=== PATIENT | male | born 1970 | race Caucasian/White ===

== ENCOUNTER 2019-10-08 13:14 | Emergency (ER) | payer OTHER ==
[2019-10-08 13:27] VITALS: BMI 34.8
[2019-10-08] MEDS ORDERED: SODIUM CHLORIDE 1,000 ML IV STA (14:11)
--- NOTE | 2019-10-08 14:20 | PDOC ---
History of Present Illness - General Chief Complaint: Blood Sugar Problem Stated Complaint: SENT BY PCP Time Seen by Provider: 10/08/19 13:46 History Source: Patient Exam Limitations: No Limitations - History of Present Illness Initial Comments: Koko Bauman is a 48 yo M w a pmh of pre-diabetes and obesity who presents to the [facility] er from urgent care because he had an elevated glucose yesterday of over 400 associated with diffuse body pains. The patient states his Hb A1c from urgent care yesterday was measured at over 11 and he was told that he now has diabetes and has to come to the hospital to have his medications adjusted. The patient currently takes metformin for diabetes but no other meds. Here in the ER the patient endorses mild abdominal discomfort rated 4/10. Patient states his doc is in the [place] and would like doctors here to assume his care. He wants instructions on how to eat a healthy diet. Denies SOB, difficulty breathing, chest pain, back pain, dysuria, frequency, urgency, headache, blurry vision, nausea or vomiting PCP: In the [place] PSH: None reported Allergies: NKA, NKDA Social Hx: Denies smoking, drinking, or other substance usage. Past History - Past Medical History Home Medications: Ambulatory Orders Hydrochlorothiazide [Hctz -] 25 mg PO DAILY 10/08/19 Metformin HCl [Glucophage] 500 mg PO BID 10/08/19 COPD: No HTN: Yes Hypercholesterolemia: Yes - Psycho Social/Smoking Cessation Hx Smoking History: Never smoked Have you smoked in the past 12 months: No Information on smoking cessation initiated: No Hx Alcohol Use: No Drug/Substance Use Hx: No Review of Systems - Review of Systems Able to Perform ROS?: Yes Comments:: CONSTITUTIONAL: Absent: fever, no chills, no fatigue EYES: Absent: visual changes ENT: Absent: ear pain, no sore throat CARDIOVASCULAR: Absent: chest pain, no palpitations RESPIRATORY: Absent: cough, no SOB GI: Present: Abdominal pain Absent: no nausea, no vomiting, no constipation, no diarrhea GENITOURINARY: Present: Polyuria Absent: dysuria, no frequency, no hematuria MUSKULOSKELETAL: Absent: back pain, no arthralgia, no myalgia SKIN: Absent: rash NEURO: Absent: headache *Physical Exam - Vital Signs Last Vital Signs Temp Pulse Resp BP Pulse Ox 98.3 F 87 16 126/86 100 11/27/19 13:23 10/08/19 13:23 10/08/19 13:23 10/08/19 13:23 10/08/19 13:23 - Physical Exam Comments: GENERAL: Well-appearing, well-nourished. No apparent distress. HEENT: Normocephalic, atraumatic. PERRL, EOM intact. CARDIOVASCULAR: Normal S1, S2. Regular rate and rhythm. PULMONARY: No evidence of respiratory distress. Lungs clear to auscultation bilaterally. No wheezing, rales or rhonchi. ABDOMEN: Soft, non-distended, non-tender. EXTREMITIES: Normal ROM in all four extremities. No gross deformities. SKIN: Warm, dry. No rash NEUROLOGICAL: No focal neurological deficits. Heart Score/ECG Review - ECG Intrepretation Rhythm: Regular Rhythm - [place]: Normal - P and NV Prominent R with upright T in V1 (true posterior PA): No Delta Wave(s) Present: No WPW: No - QRS Increased Voltage: Precordial Leads Poor R Wave Progression: No Q Wave Present: No - ST and T Early Repolarization: No Non Specific ST-T Wave changes: Yes Flattened T Waves: Yes Prolonged Q-T Interval: No - ECG Impressions Normal ECG: No Non-specific ST Elevation: No Ischemic Changes: No Torsades efrain Pointes: No WPW: No ED Treatment Course - LABORATORY CBC & Chemistry Diagram: 10/08/19 14:29 10/08/19 14:29 - ADDITIONAL ORDERS Additional order review: Laboratory Results 10/08/19 13:39 POC Glucometer 278 10/08/19 13:39 POC Glucometer 278 Medical Decision Making - Medical Decision Making Koko Bauman is a 48 yo M w a pmh of pre-diabetes and obesity who presents to the [facility] er from urgent care because he had an elevated glucose yesterday of over 400 associated with diffuse body pains. The patient states his Hb A1c from urgent care yesterday was measured at over 11 and he was told that he now has diabetes and has to come to the hospital to have his medications adjusted. The patient currently takes metformin for diabetes but no other meds. Here in the ER the patient endorses mild abdominal discomfort rated 4/10. Patient states his doc is [place] and would like doctors here to assume his care. He wants instructions on how to eat a healthy diet. Denies SOB, difficulty breathing, chest pain, back pain, dysuria, frequency, urgency, headache, blurry vision, nausea or vomiting Vital Signs Temp Pulse Resp BP Pulse Ox 98.3 F 87 16 126/86 100 10/08/19 13:23 10/08/19 13:23 10/08/19 13:23 10/08/19 13:23 10/08/19 13:23 DDx IBNLT: DKA, HHNS, hyperglycemia, electrolyte/metabolic disturbance, anemia, dehydration Plan: Labs, ekg, IV hydration, re-assess EKG: See EKG section Labs: Elevated glucose at 258, normal anion gap, normal pH, elevated beta hydroxybutyrate- This patient likely had DKA a few days ago before receiving insulin and fluids. Given his overall well appearing clinical picture we will give the patient fluids, insulin, and replete his lytes then send him home with a PCP referall appointment for Sunday. Re-assessment: Patient persistently asymptomatic throughout ED stay. Disposition: Home with PCP Fu on Sunday. - Patient will be signed out to the night team to DC him once labs return Discharge - Discharge Information Problems reviewed: Yes Clinical Impression/Diagnosis: Hyperglycemia Condition: Improved Disposition: HOME - Admission No - Follow up/Referral Referrals: [facility] [place] [Provider Group] - Patient Discharge Instructions Patient Printed Discharge Instructions: The [facility] Diet, DI for Hyperglycemia -- Adult Additional Instructions: You came into the ER with elevated glucose. We gave you fluids, insulin, and corrected your electrolytes. YOU MUST GOTO THE CLINIC WE ARE REFERRING YOU TO ON SUNDAY. PLEASE CALL [facility] AND SCHEDULE A FOLLOW UP FOR SUNDAY. if you experience abdominal pain, nausea, vomiting, fevers, chills, or any other new or worsening concerns come back to the ER immediately because you might be experiencing a life threatening situation. Make sure to take your metformin twice a day every day until you have your follow up appointment Thank you for coming to the [facility] ER. We hope you feel better soon! Print Language: ESTONIAN - Post Discharge Activity
--- NOTE | 2019-10-08 14:56 | EKG ---
Test Reason : Blood Pressure : / mmHG Vent. Rate : 079 BPM Atrial Rate : 079 BPM P-R Int : 168 ms QRS Dur : 094 ms QT Int : 358 ms P-R-T Axes : 032 -08 006 degrees QTc Int : 410 ms NORMAL SINUS RHYTHM MODERATE VOLTAGE CRITERIA FOR LVH, MAY BE NORMAL VARIANT NONSPECIFIC T WAVE ABNORMALITY ABNORMAL ECG NO PREVIOUS ECGS AVAILABLE Confirmed by RADHA ANTHONY, RADHA ([id number]) on 10/08/2019 2:56:18 PM Referred By: Confirmed By:RADHA GARCIA MD
[2019-10-08 15:11] LABS: BASO % 0.7 % (0-2.0); EOS % 0.8 % (0-4.5); HEMATOCRIT 50.1 % (35.4-49); LYMPH % 40.1 % (8-40); MCH 31.4 pg (25.7-33.7); MCHC 33.9 g/dl (32.0-35.9); MEAN CELL VOLUME 92.7 fl (80-96); MEAN PLT VOLUME 10.2 fl (7.5-11.1); MONO % 7.8 % (3.8-10.2); NEUT % 50.6 % (42.8-82.8); PLATELET COUNT 217 K/MM3 (134-434); RBC 5.41 M/mm3 (4.00-5.60); RDW 13.3 % (11.9-15.9); WHITE BLOOD COUNT 11.5 K/mm3 (4.0-10.0)
[2019-10-08 15:13] LABS: VENOUS PC02 46.3 mmHg (38-52); VENOUS PH 7.37 (7.31-7.41)
[2019-10-08 15:18] LABS: VENOUS PO2 < 49 mmHg (28-48)
[2019-10-08 15:37] LABS: ALBUMIN 4.2 g/dl (3.4-5.0); ALK PHOS 114 U/L (45-117); ANION GAP 10 MMOL/L (8-16); BILIRUBIN,TOTAL 0.4 mg/dL (0.2-1); BLOOD UREA NITROGEN 19.3 mg/dL (7-18); CALCIUM 9.9 mg/dL (8.5-10.1); CHLORIDE 98 mmol/L (98-107); CO2 26 mmol/L (21-32); GLUCOSE,RANDOM 258 mg/dL (74-106); POTASSIUM 3.9 mmol/L (3.5-5.1); SGOT/AST 35 U/L (15-37); SGPT/ALT 100 U/L (13-61); SODIUM 134 mmol/L (136-145); TOT PROT 7.9 g/dl (6.4-8.2)
[2019-10-08] MEDS ORDERED: POTASSIUM CHLORIDE TABS 20 MEQ TABLET.ER (FP) PO ONE (16:10)
[2019-10-08] MEDS ORDERED: SODIUM CHLORIDE 0.9% 500 ML INFUS.BAG IV ONE (16:10)
[2019-10-08] MEDS ORDERED: POTASSIUM CHLORIDE ORAL LIQUID 20 MEQ/15 ML PO ONE (16:10)
[2019-10-08] MEDS ORDERED: INSULIN REGULAR HUMAN 100 UNITS/ML *VIAL IVPUSH ONE (16:11)
[2019-10-08] MEDS ORDERED: POTASSIUM CHLORIDE ORAL LIQUID 20 MEQ/15 ML ONE (17:59)
[2019-10-08 19:09] LABS: BLOOD UREA NITROGEN 16.5 mg/dL (7-18); CALCIUM 8.8 mg/dL (8.5-10.1); POTASSIUM 3.4 mmol/L (3.5-5.1)
--- NOTE | 2019-10-08 19:18 | PDOC ---
Attending Attestation - Resident Resident Name: Per Stanley - ED Attending Attestation I have performed the following: I have examined & evaluated the patient, The case was reviewed & discussed with the resident, I agree w/resident's findings & plan, Exceptions are as noted - HPI HPI: 10/08/19 19:16 48-year-old male history of diabetes currently on insulin on metformin which she has been taking once daily here today for a high sugar. Patient states he was seen yesterday in urgent care was noted that his sugar was 400 states he was given a dose of insulin and DC'd to home today he received a call that his hemoglobin A1c was 11. Denies any fevers and chills no chest pain no nausea vomiting states that he has been craving sweets feeling thirsty lately denies any blurry vision no other current complaints - Physicial Exam PE: 10/08/19 19:17 awake alert no acute distress lungs are clear bilaterally heart is regular without murmurs rubs or gallops abdomen is soft and nontender obese extremities are warm well perfused patient is awake alert and oriented x3 - Medical Decision Making 10/08/19 19:17 48-year-old male diabetic currently on metformin here with a reportedly high sugar. Plan rule out DKA electrolyte normalities dehydration. Patient was given 2 L normal saline hydration. Sugar here was found to be over 250 was given 5 units of insulin IV push repeat sugar was 214. Discussed with the patient regarding diet control and dietary choices. Was given a follow-up appointment with the [place] [facility] within 48 hours instructed to take his metformin twice daily instead of once return for any signs or symptoms concerning for hyperglycemia Heart Score/ECG Review #1 General ECG Interpretation: Sinus Rhythm, Normal Rate (79), Normal Intervals, No acute ischemic changes Compared to previous ECG there are: Other (left axis)
[2019-10-08 20:43] VITALS: BP 126/76; PULSE 81; TEMP 98
== END 2019-10-08 21:14 | disposition home or self-care (01) ==
LOC: JER 13:14
PROC: 3E0337Z Introduction of Electrolytic and Water Balance Substance into Peripheral Vein, Percutaneous Approach (ICD-10-PCS; principal; 2019-10-08)
PROC: 3E013VG Introduction of Insulin into Subcutaneous Tissue, Percutaneous Approach (ICD-10-PCS; 2019-10-08)
DX: E66.9 Obesity, unspecified (principal); Z68.34 Body mass index [BMI] 34.0-34.9, adult; Z71.3 Dietary counseling and surveillance; R73.03 Prediabetes; I10 Essential (primary) hypertension; E78.00 Pure hypercholesterolemia, unspecified
CPT/HCPCS: 36415; 80048; 80053; 82010; 82550; 82553; 82803; 82962; 84484; 85025; 93005; 93010; 99283-25; J7030

== ENCOUNTER 2022-12-26 08:12 | Emergency (ER) | payer OTHER ==
[2022-12-26 08:32] VITALS: BMI 32.5
[2022-12-26] MEDS ORDERED: SODIUM CHLORIDE 2,994 ML IV ONE (08:54)
[2022-12-26] MEDS ORDERED: METOCLOPRAMIDE HCL INJECTION 10 MG/2 ML VIAL IVPB ONE (08:55)
[2022-12-26] MEDS ORDERED: ACETAMINOPHEN 1000 MG/100 ML BAG IVPB ONE (08:55)
[2022-12-26] MEDS ORDERED: ACETAMINOPHEN INJECTION 100 ML IVPB ONE (08:56)
[2022-12-26] MEDS ORDERED: METOCLOPRAMIDE HCL INJECTION 10 MG/2 ML VIAL ONE (08:56)
[2022-12-26 10:07] LABS: HEMATOCRIT 52.1 % (35.4-49); HEMOGLOBIN 17.8 GM/dL (11.7-16.9); LACTIC ACID 2.6 mmol/L (0.4-2.0); MCH 31.4 pg (25.7-33.7); MCHC 34.3 g/dl (32.0-35.9); MEAN CELL VOLUME 91.6 fl (80-96); MEAN PLT VOLUME 9.3 fl (7.5-11.1); PLATELET COUNT 219 10^3/uL (134-434); RBC 5.69 M/mm3 (4.00-5.60); RDW 13.6 % (11.9-15.9)
[2022-12-26 10:13] LABS: INR 1.14 (0.83-1.09); PROTHROMBIN TIME (PATIENT) 13.2 SEC (9.7-13.0)
[2022-12-26 10:15] LABS: VENOUS BASE EXCESS -1.1 mmol/L (-2-2); VENOUS O2 SATURATION 89.5 % (70-80); VENOUS PCO2 36.4 mmHg (38-52); VENOUS PH 7.415 (7.310-7.410)
[2022-12-26 10:16] LABS: ACTIVATED PTT 30.9 SECONDS (25.2-36.5)
[2022-12-26 10:24] LABS: CHLORIDE 106 mmol/L (98-107); SODIUM 138 mmol/L (136-145)
[2022-12-26 10:27] LABS: CALCIUM 9.1 mg/dL (8.5-10.1)
[2022-12-26 10:28] LABS: ALBUMIN 3.9 g/dl (3.4-5.0); ANION GAP 11 MMOL/L (8-16); BLOOD UREA NITROGEN 19.5 mg/dL (7-18); CO2 21 mmol/L (21-32); GLUCOSE,RANDOM 180 mg/dL (74-106)
[2022-12-26 10:31] LABS: CREATININE 0.9 mg/dL (0.55-1.3); SGOT/AST 89 U/L (15-37); SGPT/ALT 174 U/L (13-61)
[2022-12-26 10:32] LABS: BILIRUBIN,TOTAL 1.1 mg/dL (0.2-1); TOT PROT 7.8 g/dl (6.4-8.2)
[2022-12-26 10:33] LABS: ALK PHOS 83 U/L (45-117)
[2022-12-26 11:29] LABS: ANISOCYTOSIS 0; HELMET CELLS 0; HOWELL-JOLLY BODIES 0; MACROCYTOSIS 0; OVALOCYTE 0; ROULEAU 0; SICKELED CELLS 0; TARGET CELLS 0; TEAR DROP CELLS 0; TOXIC GRANULATION 0
[2022-12-26 12:38] LABS: URINE APPEARANCE CLEAR; URINE COLOR YELLOW
[2022-12-26 12:39] LABS: PH,URINE 5.5 (5.0-8.0); URINE BILIRUBIN NEGATIVE (NEGATIVE); URINE KETONE TRACE (NEGATIVE); URINE LEUK ESTERASE NEGATIVE (NEGATIVE); URINE NITRITE NEGATIVE (NEGATIVE); URINE PROTEIN NEGATIVE (NEGATIVE); URINE UROBILINOGEN 0.2 mg/dL (0.2-1.0)
[2022-12-26] MEDS ORDERED: KETOROLAC TROMETHAMINE 15 MG/ML VIAL IVPUSH ONE (12:59)
[2022-12-26] MEDS ORDERED: KETOROLAC TROMETHAMINE 15 MG/ML VIAL ONE (13:03)
[2022-12-26 13:11] LABS: LACTIC ACID 2.7 mmol/L (0.4-2.0)
[2022-12-26] MEDS ORDERED: SODIUM CHLORIDE 0.9% 500 ML INFUS.BAG IV ONE (13:14)
[2022-12-26 13:34] LABS: LIPASE 123 U/L (73-393)
[2022-12-26 13:35] LABS: AMYLASE 82 U/L (25-115)
[2022-12-26 15:59] VITALS: RESP 19
[2022-12-26 19:00] LABS: LACTIC ACID 2.5 mmol/L (0.4-2.0)
[2022-12-26] MEDS ORDERED: SODIUM CHLORIDE 1,000 ML IV SCH (19:15)
[2022-12-26 19:59] VITALS: BP 112/69; PULSE 16
[2022-12-26] MEDS ORDERED: ACETAMINOPHEN 500 MG TABLET (FP) PO STA (19:59)
[2022-12-26] MEDS ORDERED: ACETAMINOPHEN 325 MG TABLET (FP) ONE (20:00)
[2022-12-26] MEDS ORDERED: ONDANSETRON *ODT* 4 MG TABLET SL ONE (20:09)
[2022-12-26] MEDS ORDERED: ONDANSETRON *ODT* 4 MG TABLET ONE (20:11)
[2022-12-26 20:14] VITALS: TEMP 100.4
== END 2022-12-26 20:33 | disposition left against medical advice (07) ==
LOC: JER 08:12
PROC: 3E0333Z Introduction of Anti-inflammatory into Peripheral Vein, Percutaneous Approach (ICD-10-PCS; principal; 2022-12-26)
PROC: 3E0333Z Introduction of Anti-inflammatory into Peripheral Vein, Percutaneous Approach (ICD-10-PCS; 2022-12-26)
PROC: 3E033GC Introduction of Other Therapeutic Substance into Peripheral Vein, Percutaneous Approach (ICD-10-PCS; 2022-12-26)
PROC: 3E0337Z Introduction of Electrolytic and Water Balance Substance into Peripheral Vein, Percutaneous Approach (ICD-10-PCS; 2022-12-26)
DX: R00.0 Tachycardia, unspecified (principal); R50.9 Fever, unspecified; R11.2 Nausea with vomiting, unspecified; R74.02 Elevation of levels of lactic acid dehydrogenase [LDH]
CPT/HCPCS: 0241U-QW; 36415; 71045-TC-FY; 74177-TC; 76705-TC; 80053; 81003; 82150; 82550; 82553; 82803; 82962; 83605; 83690; 84484; 85025; 85610; 85730; 86850; 86900; 86901; 87040; 87086; 93005; 93010; 99285-25; Q0162; Q9967

== ENCOUNTER 2022-12-28 17:44 | Emergency (ER) | payer OTHER ==
[2022-12-28 17:57] VITALS: BP 147/101; PULSE 96; RESP 20; TEMP 98.3; BMI 33.2
== END 2022-12-28 18:30 | disposition home or self-care (01) ==
LOC: JERFT 17:44
DX: K08.89 Other specified disorders of teeth and supporting structures (principal)
CPT/HCPCS: 99281-25